=== PATIENT | female | born 1940 | race Caucasian/White ===

== ENCOUNTER 2024-01-26 21:09 | Inpatient (IN) | payer MEDICARE, OTHER, SELFPAY ==
[2024-01-26 16:57] VITALS: BP 97/65
[2024-01-26 17:52] VITALS: BMI 22.2
[2024-01-26] MEDS: ZOFRAN 4 MG IV (18:00)
[2024-01-26] MEDS: NSS 1000 IV ×2 (18:03→21:26)
--- NOTE | 2024-01-26 18:05 | ED.GENMED ---
History of Present Illness
<Donell Carvalho PA-C - Last Filed: 01/26/24 22:52>
General
Chief Complaint: Abdominal Symptoms
Source: patient
Exam Limitations: none
Time Seen by Provider: 01/26/24 17:25
Travel History
Have you had any contact with someone who has COVID-19?: No
Do you have any symptoms of coronavirus? Fever > 100 degrees, chills, cough, shortness of breath, sore throat, loss of taste or smell, muscle aches, or headache?: No
History of Present Illness
History of Present Illness:
83-year-old female presents complaining of 3 to 4 days worth of persistent vomiting and abdominal pain. She has not had a bowel movement. She is never been here before. Past surgical history includes splenectomy cholecystectomy and removal of
tail of pancreas. She has a history of hypertension and insulin-dependent diabetes. She has not been able to keep anything down. She feels very weak and dehydrated. No chest pain. No fever. No other complaints at this time
Phy Exam
<Donell Carvalho PA-C - Last Filed: 01/26/24 22:52>
Physical Exam
Physical Exam:
General: Well-appearing female no acute respiratory distress
HEENT: Normocephalic atraumatic mucosa dry
Heart: Regular rate and rhythm no murmurs
Lungs: Clear no wheeze abdomen: Soft but tender diffusely. No guarding or rebound tenderness nondistended
Extremities: No cyanosis or edema
Skin: Warm no rash
Course
<Donell Carvalho PA-C - Last Filed: 01/26/24 22:52>
Orders/Labs/Results
Orders:
Orders
01/26/24 Dinner
NPO
Allow oral meds: Yes
Allow clear liquids: No
NPO with Ice Chips: Yes
01/26/24 17:38
CT Abd/pel Without Iv Or Oral Urgent
Reason For Exam: abodminal pain, vomiting,
0.9% Sodium Chloride 1000 ml [Nss] 1,000 ml IV BOLUS
Ondansetron Injectable [Zofran] 4 mg IV NOW STA
01/26/24 17:39
Electrocardiogram (*1) Urgent
Reason for Study: Abdominal Pain
EKG- Treatment ONCE
01/26/24 18:07
Basic Metabolic Panel Urgent
Complete Blood Count/With Diff Urgent
Lipase Urgent
Manual Differential Urgent
Diphenhydramine [Benadryl] 50 mg IV NOW STA
Hydrocortisone Sod Succinate [Solu-Cortef] 200 mg IV NOW STA
01/26/24 20:06
0.9% Sodium Chloride 1000 ml [Nss] 1,000 ml IV BOLUS
Piperacillin/Tazo 3.375 Gram [Zosyn] 3.375 gram in 50 ml IV NOW
01/26/24 20:26
Lactic Acid Q4H
Comment: CANCEL 2nd LACTIC ACID IF 1st LACTIC ACID IS LESS THAN 2
01/26/24 20:39
Ondansetron Injectable [Zofran] 4 mg .ROUTE .STK-MED ONE
01/26/24 20:43
Admit/Transfer Patient As Directed
Co-Sign Provider:
Level of Care: Inpatient admission
Assign to:: Medical/Surgical
Physician / Group: Hospitalist
Diagnosis: Small bowel obstruction
Reason for Hospitalization: Small bowel obstruction
Expected length of stay greater than two midnights?: Yes
ELOS- Estimated Length of Stay in days: 2
I certify the patient meets the requirements for IP care: Yes
Code Status As Directed
Resuscitation Status: Limited DNR
Limited DNR: -No intubation
01/26/24 22:31
Acetaminophen [Tylenol] 650 mg PO Q4HPRN PRN
Bisacodyl [Dulcolax] 10 mg RECTAL [id number] PRN
HYDROmorphone [Dilaudid] 0.5 mg IV Q4HPRN PRN
Lactated Ringers [Lr] 1,000 ml IV 100 mls/hr
Ondansetron Injectable [Zofran] 4 mg IV Q6HPRN PRN
01/26/24 22:31
SURGICAL CONSULT Routine
Consulting Provider: Silas Herrera
Was physician already notified: Yes
Reason for consult: small bowel obstruction
Activity As Directed
Activity Level: With Assistance
Bedside Glucose Monitoring As Directed
Frequency: Q6H
Vital Signs As Directed
Frequency: Per unit guidelines
Pulse Ox/spot Check [RESP] Routine
Quantity: 1
DX Deep Vein Thrombosis Video Routine
01/27/24 00:00
Heparin 5,000 units SC Q8
Insulin Aspart Corrective Low [Novolog Flexpen-Low Resistance] See Protocol SC Q6
01/27/24 06:00
Basic Metabolic Panel IN AM
Complete Blood Count/No Diff IN AM
Abnormal Lab Results
01/26/24
18:07
Segmented Neutrophils 39 L %
(42-75)
Band Neutrophils 33 H %
(0-3)
Lymphocytes (Manual) 12 L %
(20-51)
Monocytes (Manual) 16 H %
(2-9)
Sodium 133 L mmol/L
(135-145)
Chloride 94 L mmol/L
(98-107)
Carbon Dioxide 20 L mmol/L
(22-30)
BUN 60 H mg/dl
(7-17)
Creatinine 2.0 H mg/dL
(0.6-1.0)
Glucose 112 H mg/dl
(70-99)
Lipase 21 L U/L
(23-300)
01/26/24 18:07
01/26/24 18:07
Vital Signs
Initial and Last Documented VS:
Initial Vital Signs
Temp Pulse Resp BP Pulse Ox
98.9 F 101 20 97/65 95
01/26/24 16:57 01/26/24 16:57 01/26/24 16:57 01/26/24 16:57 01/26/24 16:57
Last Documented Vital Signs
Temp Pulse Resp BP Pulse Ox
98.9 F 94 23 128/73 94
01/26/24 16:57 01/26/24 22:00 01/26/24 22:00 01/26/24 21:17 01/26/24 21:45
<Hui Snowden MD - Last Filed: 01/26/24 19:34>
Orders/Labs/Results
Orders:
Orders
01/26/24 Dinner
NPO
Allow oral meds: Yes
Allow clear liquids: No
NPO with Ice Chips: Yes
01/26/24 17:38
CT Abd/pel Without Iv Or Oral Urgent
Reason For Exam: abodminal pain, vomiting,
0.9% Sodium Chloride 1000 ml [Nss] 1,000 ml IV BOLUS
Ondansetron Injectable [Zofran] 4 mg IV NOW STA
01/26/24 17:39
Electrocardiogram (*1) Urgent
Reason for Study: Abdominal Pain
EKG- Treatment ONCE
01/26/24 18:07
Basic Metabolic Panel Urgent
Complete Blood Count/With Diff Urgent
Lipase Urgent
Manual Differential Urgent
Diphenhydramine [Benadryl] 50 mg IV NOW STA
Hydrocortisone Sod Succinate [Solu-Cortef] 200 mg IV NOW STA
01/26/24 20:06
0.9% Sodium Chloride 1000 ml [Nss] 1,000 ml IV BOLUS
Piperacillin/Tazo 3.375 Gram [Zosyn] 3.375 gram in 50 ml IV NOW
01/26/24 20:26
Lactic Acid Q4H
Comment: CANCEL 2nd LACTIC ACID IF 1st LACTIC ACID IS LESS THAN 2
01/26/24 20:39
Ondansetron Injectable [Zofran] 4 mg .ROUTE .STK-MED ONE
01/26/24 20:43
Admit/Transfer Patient As Directed
Co-Sign Provider:
Level of Care: Inpatient admission
Assign to:: Medical/Surgical
Physician / Group: Hospitalist
Diagnosis: Small bowel obstruction
Reason for Hospitalization: Small bowel obstruction
Expected length of stay greater than two midnights?: Yes
ELOS- Estimated Length of Stay in days: 2
I certify the patient meets the requirements for IP care: Yes
Code Status As Directed
Resuscitation Status: Limited DNR
Limited DNR: -No intubation
01/26/24 22:31
Acetaminophen [Tylenol] 650 mg PO Q4HPRN PRN
Bisacodyl [Dulcolax] 10 mg RECTAL [id number] PRN
HYDROmorphone [Dilaudid] 0.5 mg IV Q4HPRN PRN
Lactated Ringers [Lr] 1,000 ml IV 100 mls/hr
Ondansetron Injectable [Zofran] 4 mg IV Q6HPRN PRN
01/26/24 22:31
SURGICAL CONSULT Routine
Consulting Provider: Silas Herrera
Was physician already notified: Yes
Reason for consult: small bowel obstruction
Activity As Directed
Activity Level: With Assistance
Bedside Glucose Monitoring As Directed
Frequency: Q6H
Vital Signs As Directed
Frequency: Per unit guidelines
Pulse Ox/spot Check [RESP] Routine
Quantity: 1
DX Deep Vein Thrombosis Video Routine
01/27/24 00:00
Heparin 5,000 units SC Q8
Insulin Aspart Corrective Low [Novolog Flexpen-Low Resistance] See Protocol SC Q6
01/27/24 06:00
Basic Metabolic Panel IN AM
Complete Blood Count/No Diff IN AM
Abnormal Lab Results
01/26/24
18:07
Segmented Neutrophils 39 L %
(42-75)
Band Neutrophils 33 H %
(0-3)
Lymphocytes (Manual) 12 L %
(20-51)
Monocytes (Manual) 16 H %
(2-9)
Sodium 133 L mmol/L
(135-145)
Chloride 94 L mmol/L
(98-107)
Carbon Dioxide 20 L mmol/L
(22-30)
BUN 60 H mg/dl
(7-17)
Creatinine 2.0 H mg/dL
(0.6-1.0)
Glucose 112 H mg/dl
(70-99)
Lipase 21 L U/L
(23-300)
01/26/24 18:07
01/26/24 18:07
Vital Signs
Initial and Last Documented VS:
Initial Vital Signs
Temp Pulse Resp BP Pulse Ox
98.9 F 101 20 97/65 95
01/26/24 16:57 01/26/24 16:57 01/26/24 16:57 01/26/24 16:57 01/26/24 16:57
Last Documented Vital Signs
Temp Pulse Resp BP Pulse Ox
98.9 F 94 23 128/73 94
01/26/24 16:57 01/26/24 22:00 01/26/24 22:00 01/26/24 21:17 01/26/24 21:45
Mckinleylt;Donell Carvalho PA-C - Last Filed: 01/26/24 22:52>
MDM/Problems Addressed
Differential Diagnosis Includes:
Abdominal pain with vomiting. Question viral illness versus obstruction. Will check for electrolyte abnormality or kidney injury. Does appear dry on exam. Will treat with Zofran and fluids. Labs pending. Will order CT scan of abdomen. Patient
has a rash with IV contrast. Will pretreat.
<Donell Carvalho PA-C - Last Filed: 01/26/24 22:52>
*Critical Care Note
Total Time (30-74mins, 75-104mins- exclusive of procedures): Not Applicable
<Donell Carvalho PA-C - Last Filed: 01/26/24 22:52>
Update Note
Update Note:
Patient's kidney function preclude her from getting IV contrast CT. She does have acute kidney injury with creatinine of 2.0. Suspect prerenal. CT was performed without contrast which demonstrates small bowel obstruction versus ileus. She had
vomited several times here. NG tube was placed. Admitted to medicine and general surgery made aware
ED Attending Note
<Donell Carvalho PA-C - Last Filed: 01/26/24 22:52>
-
Portions of this chart may have been created with voice recognition software.� Occasional wrong word or��sound alike� substitutions may have occurred due to the inherent limitations of voice recognition software.
<Hui Snowden MD - Last Filed: 01/26/24 19:34>
ED Attending Note
Patient seen and examined by attending physician: Yes
I performed the substantive portion of visit, reviewed & personally made and approve the management plan that is documented in note by myself or JEANMARIE.: Yes
ED Attending Note:
83-year-old female with 4-day history of nonbloody intractable vomiting and generalized lower abdominal discomfort. Patient does have a prior surgical history. On exam, nonspecific lower abdominal tenderness to palpation, no rebound or guarding.
Hyperactive bowel sounds. Mucous membranes extremely dry, patient overall tired appearing. Strongly suspect bowel obstruction, and CAT scan at this time, will continue to hydrate, observe closely, and admit.
Discharge Plan
Departure
Patient Disposition: Admit
Presentation/result/management discussed w/ accepting MD/DO: Hospitalist
Discharge Problem:
Small bowel obstruction
Interventions
Interventions:
*Risk Screen - Suicide Last Done: 01/26/24 17:01
*General Assessment Last Done: 01/26/24 17:01
*Neglect/Abuse Screening Last Done: 01/26/24 17:01
ED- Fall Risk Assessment Last Done: 01/26/24 21:30
*ED COVID-19 Vaccine History Last Done: 01/26/24 18:22
*Nursing Disposition Last Done: 01/26/24 22:23
GT-Mzyneo-Utybmrlipb Assessment Last Done: 01/26/24 21:29
Discharge Date and Time
Discharge Date/Time: 01/26/24 22:29
[2024-01-26 18:16] LABS: Hemoglobin 15.3 g/dL (12.0-16.0); Mean Corpuscular Hgb 30.6 pg (27.0-31.0); Mean Platelet Volume 9.7 fL (7.4-10.4); Platelet Count 362 10^3/uL (130-400); Red Cell Dist. Width 13.2 % (11.5-14.5); White Blood Cell Count 7.2 10^3/uL (4.8-10.8)
[2024-01-26 18:57] LABS: Absolute Neutrophils -Man Diff 5.1 10^3/uL (1.4-6.5); Band Neutrophils 33 % (0-3); Lymphocytes 12 % (20-51); Monocytes 16 % (2-9); Normal RBC Morphology No; Platelets Checked Yes; Segmented Neutrophils 39 % (42-75)
[2024-01-26 18:58] LABS: Acanthocytes 3+; Total Cells Counted 100
[2024-01-26 19:05] LABS: Blood Urea Nitrogen 60 mg/dl (7-17); Carbon Dioxide 20 mmol/L (22-30); Chloride 94 mmol/L (98-107); Estimated Creatinine Clearance 19 ml/min; Glucose 112 mg/dl (70-99); Sodium 133 mmol/L (135-145); eGFR 24.48
[2024-01-26 19:16] LABS: Lipase 21 U/L (23-300)
[2024-01-26] MEDS: NSS IV (20:10)
[2024-01-26] MEDS: ZOSYN 50 IV (20:10)
--- NOTE | 2024-01-26 20:25 | HPS.HSE ---
Family Physician
-
Family Physician: Coleen Danielle
Chief Complaint
-
Vomiting and abdominal pain
History of Present Illness
This is an 83-year-old female with past medical history of hypertension hypothyroidism insulin-dependent diabetes, history of remote cholecystectomy, splenectomy with distal pancreatectomy and recently had bilateral mastectomy a year ago
presents to the emergency department with abdominal pain and vomiting for the last 3 days.
She reports that she had otherwise been in usual state of health up until 3 days ago when she started having diffuse abdominal pain and bloating. She reported that she started vomiting a few hours later. The vomiting has been continuous and she
reported she has had bilious emesis. Last bowel movement was about 3 days ago. She is unable to keep any p.o. down. She denied having any fevers or chills. She denies any flank pain. She denies any dysuria or hematuria. She denies any melena
or hematochezia. She has not had any bloody emesis. Despite vomiting she has not had any cough, wheezing or shortness of breath.
Last intra-abdominal surgery was around 15 years ago or more. She denies any recent intra-abdominal procedures. She denies any history of kidney stones. Has been no recent changes in the medications.
On arrival in the emergency department the patient was afebrile, BP of 97/60, normal respirations with a normal oxygen saturation. ECG showed normal sinus rhythm at a rate of [address] or T wave changes. White count was 7.2 but she
had a 3% bandemia. Hemoglobin was 15 with a platelet count of 362. Chemistries notable for a sodium of 133, potassium is pending, BUN is 60 and a creatinine of 2.0 with a glucose of 112. Lipase is normal. She had a CT of the abdomen and pelvis
which showed small bowel obstruction versus ileus.
Medical History
Past Medical History
Past Medical History: Reports Cancer (Breast Ca), HTN, Hypothyroidism and IDDM
Past Surgical History: Reports Cholecystectomy
Additional Past Surgical History:
Distal Pancreatectomy
Splenectomy
Social History
Tobacco: Non-smoker
Drug: None
Personal: Single
Living: Alone
Employment: Retired
Family History
Family History: Not pertinent
Allergies / Home Medications
Allergies reflects when Allergies were last updated in [employer].
Home Medications with original date entered in [employer]
Allergy/Medication List:
Allergies
Allergy/AdvReac Type Severity Reaction Status Date / Time
codeine Allergy Unknown Verified 01/26/24 17:06
Iodinated Contrast Media Allergy Rash Verified 01/26/24 17:54
Aspirin 81 mg po daily
Amlodipine 5 mg po daily
Carvedilol 6.25mg po bid
Levemir 6 units sq daily
Levothyroxine 75 mcg po -Sat
Levothyroxine 50 mcg po saturday
Losartan 100mg po daily
Omeprazole 20mg po dialy
Pravastatin 80mg po daily
B12 5000 mcg po daily
Vit D3 400 U po daily
Review of Systems
-
History Source: Patient and Family
Constitutional: Reports No Symptoms
EENT: Reports No Symptoms
Respiratory: Reports No Symptoms
Cardiac: Reports No Symptoms
Abdomen/GI: Reports Abdominal Pain, Vomiting and Constipated
: Reports No Symptoms
Musculoskeletal: Reports No Symptoms
Skin: Reports No Symptoms
Neurological: Reports No Symptoms
Endocrine: Reports No Symptoms
Hematologic/Lymphatic: Reports No Symptoms
Psych: Reports No Symptoms
Physical Exam
Vital Signs
Vital Signs
Temp Pulse Resp BP Pulse Ox
98.9 F 101 20 97/65 95
01/26/24 16:57 01/26/24 16:57 01/26/24 16:57 01/26/24 16:57 01/26/24 16:57
Physical Exam
General: Well Developed, Well Nourished and Appears in Distress
HEENT: NormoCephalic, Anicteric, Atraumatic, PERRLA and Fortine Conjunctivae
Respiratory: Clear
Cardiac: S1/S2 and Regular Rhythm
Breast: Deferred by me
GI: Soft, Non Distended, Tender and Other (decreased bowel sounds)
Rectal: Deferred by Provider
Genito-urinary: Deferred by me
Musculoskeletal: No Clubbing, No Cyanosis and No Edema
Skin: Warm
Neuro: AO x 3
Hematologic/Lymphatic: No Lymphadenopathy
Psych: Calm
Laboratory Results
-
01/26/24 18:07
01/26/24 18:07
Laboratory Results
Total Bilirubin Cancelled 01/26/24 18:07
AST Cancelled 01/26/24 18:07
ALT Cancelled 01/26/24 18:07
Alkaline Phosphatase Cancelled 01/26/24 18:07
Lipase 21 U/L (23-300) L 01/26/24 18:07
Data Reviewed
-
CT Scan: Report Reviewed by me
Medical Tests (Nuc Med, Echo, EKG etc): Image Personally Visualized and interpreted
Lab Data: Labs Reviewed by me
Old Records: Reviewed
Impression/Plan
-
IMPRESSION:
PLAN:
1. Abdominal pain - Small bowel obstruction versus ileus. H/O intraabdominal surgeries. No h/o IBD. No masses. Already vomited for the last 3 days with bilious emesis. Currently dehydrated with soft bp and SITA. Surgery aware and supportive
care indicated for now.
- admit to med/surg
- NG tube placement to low intermittent suction
- pain control with tylenol prn and diluadid
- antiemetics
- npo except critical meds
- IV fluids with LR at 100 ml/hr
- surgery consult
2. SITA - BUN 60, Cr 2.0. C/W prerenal azotemia given history. Na 133.
- IV fluids at 100 ml/hr
- monitor i/o
-holding losartan for now
3. HTN - Patient on amlodipine 5, carvedilol 6.25 bid and losartan. BP soft at 97/65 currently
- hold amlodipine and losartan
- continue beta blockade bid with hold parameters (use IV metoprolol 2.5 q6 for now)
4. GERD -
- PPI IV daily
5. Hypothyroid
- holding levothyroxine
6. DM II
- low sensitive sliding scale q 6
7. Bandemia - No prior CBC for comparison. No obvious source of infection. No pulmonary symptoms to suggest aspiration.
- repeat cbc for now and monitor for onset of an infectious process
DVT PPX - heparin sq q 8
Code Status - limited resucitation via CPR, no intubation
[2024-01-26 20:56] LABS: Lactic Acid 1.3 mmol/L (0.7-2.0)
[2024-01-26 21:17] VITALS: BP 128/73
[2024-01-26 22:56] LABS: Glucose - Point of Care 117 mg/dl (70-99)
[2024-01-26 23:22] VITALS: BP 116/61; BMI 21.2
[2024-01-26] MEDS: LR 1000 IV (23:27)
[2024-01-27] MEDS: HEPARIN 5000 UNITS SC ×4 (01:15→23:32)
--- NOTE | 2024-01-27 03:15 | PTCARENOTE ---
Addendum entered by Mirella Galarza RN 01/27/24 03:19:
Pt arrived at 19:55 to the floor
Original Note:
Pt arrived 2S via stretcher from the ED. Pt. AAOX3, VSS, complains of no pain. NG tube 14 German to Lt nare at low intermitted suction. Head to toe assessment complete. Grandaughter at the beside. Bed in lowest position and locked. Call heard within
reach.
--- NOTE | 2024-01-27 03:21 | PTCARENOTE ---
Pt has had multiple episodes of inc liquid stools. Pt states this is not her baseline. see BM intervention documentation.
[2024-01-27 05:45] LABS: Mean Corp Hgb Conc. 33.3 g/dL (33.0-37.0); Mean Corpuscular Hgb 30.4 pg (27.0-31.0); Mean Corpuscular Volume 91.1 fL (81.0-99.0); Platelet Count 317 10^3/uL (130-400); Red Blood Cell Count 3.95 10^6/uL (4.20-5.40); Red Cell Dist. Width 13.2 % (11.5-14.5); White Blood Cell Count 9.3 10^3/uL (4.8-10.8)
[2024-01-27 05:50] LABS: Glucose - Point of Care 116 mg/dl (70-99)
[2024-01-27 06:00] VITALS: BMI 21.2
[2024-01-27 06:18] LABS: Blood Urea Nitrogen 55 mg/dl (7-17); Carbon Dioxide 21 mmol/L (22-30); Chloride 102 mmol/L (98-107); Estimated Creatinine Clearance 22 ml/min; Glucose 106 mg/dl (70-99); Potassium 4.1 mmol/L (3.5-5.1); Sodium 137 mmol/L (135-145); eGFR 29.76
[2024-01-27 07:35] VITALS: BP 125/63
[2024-01-27] MEDS: PROTONIX IV 40 MG IV (08:53)
[2024-01-27] MEDS: NSS (PRESERVATIVE FREE) 10 ML IV (08:53)
[2024-01-27] MEDS: LR 1000 IV ×2 (08:55→20:43)
--- NOTE | 2024-01-27 09:35 | CON.GS ---
Addendum entered and electronically signed by Clyde Razo MD 01/27/24 15:38:
I saw and examined the patient independently.
The Bulk Mail Technician's note was reviewed and I agree with the note, assessment and plan except where noted below.
Comment: This is an 83-year-old female who presents with nausea vomiting and bilious emesis for 3 to 4 days with accompanied abdominal pain for roughly a week. Per hospital notes she has a history of a distal pancreatectomy and splenectomy as well
as a cholecystectomy. 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 A CT scan was obtained which demonstrated the distal small bowel obstruction, first
that she has ever had. An NG tube was placed with bilious output and immediate relief. The patient states that she is passing flatus and has had a few small bowel movements. Her abdominal exam is reassuring.
On review of her CT scan she does have some small fat-containing midline hernias as well as hyperdense foreign objects along the fascia concerning for retained clips or tacks that is likely the source of her sinus tract. There is no involvement of
the bowel and I do believe that it is unrelated to her underlying small bowel obstruction.
Will continue nonoperative management of small bowel obstruction.
N.p.o., IV fluids, NG tube to low intermittent wall suction. Will start a PPI as there is some blood in the NG.
X-ray obtained today which demonstrates some continued dilated loops of bowel but overall fairly decompressed and no concerning findings at this time.
General surgery will continue to follow.
Original Note:
Consultation
-
Requesting Provider: Celeste James
Performing Provider: Abiola Razo
Reason for Consultation: sbo
Medical History
-
Chief Complaint: nausea and vomiting
History of Present Illness:
83 yo female who presented with nausea and vomiting of bilious emesis for 3-4 days with abdominal cramping/bloating and pain for roughly for a week. History limited as patient did not wish to disclose all her medical/surgical history at this time,
but per hospitalist notes she had splenectomy, distal pancreatectomy and cholecystectomy in the past. 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 There is a
dressing in place which she requested not be removed. NGT was placed with brown blood tinged drainage noted currently. She reports abdominal discomfort and bloating much improved overnight and that now she is passing diarrhea. Prior to this, she was
without any passage of BM's or flatus for 3 days.
Past Medical History
Past Medical History: Cancer (Breast), HTN, Hypothyroidism and NIDDM
Past Surgical History: Cholecystectomy and Other (BL mastectomy, splenectomy with distal pancreatectomy)
Social History
Tobacco: Non-Smoker
Alcohol: None
Living: Alone
Employment: Retired
Family History
Family History: Reviewed & Not Pertinent
Allergies / Home Medications
Allergy/AdvReac Type Severity Reaction Status Date / Time
codeine Allergy Unknown Verified 01/26/24 17:06
Iodinated Contrast Media Allergy Rash Verified 01/26/24 17:54
�Medication �Instructions �Recorded �Confirmed �Type
Levemir FlexPen 4 pen needle SC DAILY Diabetes 01/27/24 01/27/24 History
amlodipine 5 mg tablet 5 mg PO DAILY Blood Pressure 01/27/24 01/27/24 History
aspirin 81 mg capsule 81 mg PO DAILY Blood Clot 01/27/24 01/27/24 History
Prevention/Tx
carvedilol 6.25 mg tablet 6.25 mg PO BID Blood Pressure 01/27/24 01/27/24 History
levothyroxine 50 mcg tablet 50 mcg PO 1XD Thyroid 01/27/24 01/27/24 History
levothyroxine 75 mcg tablet 75 mcg PO 6XD Thyroid 01/27/24 01/27/24 History
losartan 100 mg tablet 100 mg PO DAILY Blood Pressure 01/27/24 01/27/24 History
omeprazole 20 mg capsule,delayed 20 mg PO DAILY Gastrointestinal 01/27/24 01/27/24 History
release Issue
pravastatin 80 mg tablet 80 mg PO DAILY High Cholesterol 01/27/24 01/27/24 History
Review of Systems
-
History Source: Patient
All other systems: Negative unless noted
A 10 point review of systems was completed, and was negative except as per HPI.
Physical Exam
Vital Signs
Temp Pulse Resp BP Pulse Ox
97.6 F 85 17 125/63 95
01/27/24 07:35 01/27/24 07:35 01/27/24 07:35 01/27/24 07:35 01/27/24 07:35
01/26/24 01/27/24 01/28/24
06:59 06:59 06:59
Actual Weight 56.064 kg
Body Mass Index (BMI) 21.2
Lab Results
01/27/24 05:02
01/27/24 05:02
WBC 9.3 10^3/uL (4.8-10.8) 01/27/24 05:02
Hgb 12.0 g/dL (12.0-16.0) D 01/27/24 05:02
Hct 36.0 % (37.0-47.0) L 01/27/24 05:02
Plt Count 317 10^3/uL (130-400) 01/27/24 05:02
Abs Immat Gran (auto) Not Reportable 01/26/24 18:07
Neutrophils % Not Reportable 01/26/24 18:07
Physical Exam
General: Well Developed and No Apparent Distress
HEENT: Moist Mucous Membranes
Respiratory: Non Labored Respirations
GI: Soft, Non Tender, Distended (minimal) and Other (NGT with brown, blood tinged outputs)
Skin: Warm
Neuro: Awake, Alert and AO x 3
Psych: Calm
Data Reviewed
-
CT Scan: Image Personally Visualized and interpreted, Report Reviewed by me, Discussed with Physician and Discussed with Patient
Labs: Labs Reviewed by me, Discussed with Physician and Discussed with Patient
Assessment / Plan
-
83 yo female with h/o IDDM, cholecystectomy, splenectomy, partial pancreatectomy, and bilateral mastectomies for breast ca who presents with n/v/abdominal pain for the past [address] imaging with concern for distal SBO vs ileus. NGT placed
overnight with brown/blood tinged drainage present. Now passing watery stools although no real flatus. Symptoms much improved from presentation.
AFVSS. No leukocytosis.
--Keep NPO with NGT in place
--Check Abd xr this am, tentative NGT removal pending findings
--No plans for emergent operative intervention, will follow with bowel rest, decompression and supportive measures at this time
--- NOTE | 2024-01-27 11:49 | CM ---
CM following re: discharge planning.
Reviewed pt's chart, met with pt.
Pt is an 83 year old female, admitted with primary dx of Abdominal pain - Small bowel obstruction versus ileus.
Pt reports she lives alone in a townhouse, 6+7 steps to enter, has 2 supportive daughters and 4 stepchildren. Pt reports her 22 daughters and one stepdaughter live nearby, very supportive and help as needed. Pt described herself as independent in
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 No VN or SNF history.
PCP: Coleen Danielle
Pharmacy: [facility].
D/C plan: pt stated she does not anticipate any VN needs at discharge. Daughter to transport at discharge.
CM will follow with discharge plan updates as hospitalization progresses.
--- NOTE | 2024-01-27 12:41 | W.PN.HOSP.TC ---
Today's Communication/Plan
-
Await general surgery input
Assessment / Plan
Assessment / Plan
Gen-AAOx3, NAD
HEENT-NC, AT, anicteric, clear oral mm, NG tube in place
Neck-supple
CV-reg, no M, +S1/S2
Lungs-clear B/L
Abd-soft, NT, ND
Ext-no edema
Musculoskeletal-no cyanosis, clubbing
Skin-warm and dry
Neuro-grossly non-focal
Psych-calm, cooperative
Small bowel obstruction -clinically improving, having loose stools. Follow-up abdominal x-ray today. Currently n.p.o., continue IV fluids. NG tube per surgical service. Denies history of bowel obstruction.
SITA -likely due to volume depletion due to anorexia from bowel obstruction. GI losses with vomiting. Creatinine improving with IV fluids. Recheck labs tomorrow.
Hypovolemic hyponatremia -improving with IV fluids.
Hypothyroidism -resume Synthroid when able.
Essential hypertension -stable.
DM2 without hyperglycemia -glucose 106 this morning. She takes Levemir FlexPen 6 units daily. Currently on NovoLog low resistance scale.
Hyperlipidemia -on Pravachol at home.
Limited DNR
Anticipated Discharge: 24 - 48 hours
Subjective/Interval History
-
Date of Service: January 27, 2024
Patient seen and examined. Feeling better. Denies pain currently.
Objective Data
-
Labs:
Laboratory Results
01/27/24
05:02
WBC 9.3
Hgb 12.0 D
Hct 36.0 L
Plt Count 317
Sodium 137
Potassium 4.1
Chloride 102
Carbon Dioxide 21 L
BUN 55 H
Creatinine 1.7 H
Glucose 106 H
Calcium 9.0
Vital Signs:
Vital Signs
Temp Pulse Resp BP Pulse Ox
97.6 F 85 17 125/63 95
01/27/24 07:35 01/27/24 07:35 01/27/24 07:35 01/27/24 07:35 01/27/24 08:51
I&O
01/26/24 01/27/24 01/28/24
06:59 06:59 06:59
Output Total 350 / 350
Balance -350 / -350
Review of Systems
-
History Source: Patient
All other systems: Reviewed and negative
[2024-01-27 13:06] LABS: Glucose - Point of Care 90 mg/dl (70-99)
[2024-01-27 15:41] VITALS: BP 157/70
[2024-01-27 17:21] LABS: Glucose - Point of Care 71 mg/dl (70-99)
[2024-01-27] MEDS: CHLORASEPTIC/SORE THROAT SPRAY 2 SPRAY PO (20:53)
[2024-01-27 23:40] VITALS: BP 154/92
[2024-01-27 23:40] LABS: Glucose - Point of Care 65 mg/dl (70-99)
[2024-01-27] MEDS: DEXTROSE 50% SYRINGE 12.5 GRAMS IV (23:56)
[2024-01-28 00:25] LABS: Glucose - Point of Care 119 mg/dl (70-99)
[2024-01-28 05:37] LABS: Glucose - Point of Care 72 mg/dl (70-99)
[2024-01-28 07:06] VITALS: BP 163/85
[2024-01-28 07:15] LABS: Glucose - Point of Care 68 mg/dl (70-99)
[2024-01-28] MEDS: DEXTROSE 50% SYRINGE 12.5 GRAMS IV (07:38)
[2024-01-28] MEDS: LR 1000 IV (07:42)
[2024-01-28] MEDS: HEPARIN 5000 UNITS SC ×3 (07:44→23:42)
[2024-01-28] MEDS: NSS (PRESERVATIVE FREE) 10 ML IV (07:44)
[2024-01-28] MEDS: PROTONIX IV 40 MG IV (07:44)
--- NOTE | 2024-01-28 08:24 | W.PN.GS2 ---
Today's Communication / Plan
-
-- DC NGT
-- Clears
-- OOB/ambulate, minimize narcotics, correct lytes
Assessment / Plan
-
Patient is an 83 yo F p/w SBO likely secondary to adhesions
Clinical improvement with minimal, gastric outputs and passage of flatus and stool. Plan for NGT removal and trial of clears.
-- DC NGT
-- Clears
-- OOB/ambulate, minimize narcotics, correct lytes
Subjective Data
-
Date of Service: January 28, 2024
Imaging complaints. Abdominal pain and distention has improved since admission, and patient states that she is back to her baseline. Passing minimal flatus, small bowel movement this AM. No fevers or chills. No nausea or vomiting.
Objective Data
-
Intake and Output
01/27/24 01/28/24 01/29/24
06:59 06:59 06:59
Intake Total 1200 / 1200
Output Total 350 / 350 250 / 250
Balance -350 / -350 950 / 950
Intake:
IV fluids (Total) 1200 / 1200
Output:
Gastrointestinal tube output ( 350 / 350 250 / 250
Total)
[place] Sump 350 / 350 250 / 250
Other:
Number of approximated MODERATE 1 1
amounts of urine
Number of approximated LARGE 1
amounts of urine
Number of unmeasured liquid
stools
Rectum 3 1
Vital Signs
Temp Pulse Resp BP Pulse Ox
97.4 F 79 16 154/92 95
01/27/24 23:40 01/27/24 23:40 01/27/24 23:40 01/27/24 23:40 01/27/24 23:40
Lab Results
01/27/24 05:02
Calcium 9.0 mg/dl (8.4-10.2) 01/27/24 05:02
Total Bilirubin Cancelled 01/26/24 18:07
AST Cancelled 01/26/24 18:07
ALT Cancelled 01/26/24 18:07
Alkaline Phosphatase Cancelled 01/26/24 18:07
Total Protein Cancelled 01/26/24 18:07
Albumin Cancelled 01/26/24 18:07
Physical Exam
-
Gen: NAD
HEENT: gastric outputs
Abd: soft, NT, minimal distension, non-peritoneal, prior incisions well healed, abd dressing c/d/i
[2024-01-28 08:28] LABS: Glucose - Point of Care 122 mg/dl (70-99)
[2024-01-28 10:10] LABS: ALT (SGPT) 16 U/L (0-35); AST (SGOT) 25 U/L (14-36); Albumin 3.1 g/dl (3.5-5.0); Alkaline Phosphatase 100 U/L (38-126); Blood Urea Nitrogen 25 mg/dl (7-17); Calcium 9.6 mg/dl (8.4-10.2); Carbon Dioxide 27 mmol/L (22-30); Chloride 101 mmol/L (98-107); Estimated Creatinine Clearance 54 ml/min; Glucose 94 mg/dl (70-99); Potassium 3.3 mmol/L (3.5-5.1); Sodium 137 mmol/L (135-145); Total Bilirubin 0.5 mg/dl (0.2-1.3); Total Protein 5.6 g/dl (6.3-8.2); eGFR > 60.00
[2024-01-28 10:45] LABS: Glucose - Point of Care 88 mg/dl (70-99)
--- NOTE | 2024-01-28 11:03 | CM ---
Addendum entered by Naveed Richards 01/28/24 11:06:
IMM reviewed, placed on chart, pt has a copy.
Original Note:
CM following re: discharge planning.
Reviewed pt's chart, met with pt. Per surgery, discharge NGT, advance diet, out of bed.
Pt lives alone in a townhouse, 6+7 steps to enter, has 2 supportive daughters and 4 stepchildren. Pt reports her 2 daughters and one stepdaughter live nearby, very supportive and help as needed. Pt described herself as independent in all areas [place],
uses a cane when goes shopping.
D/C plan: pt stated she does not anticipate any VN needs at discharge. Daughter to transport at discharge.
CM will follow with discharge plan updates as hospitalization progresses.
--- NOTE | 2024-01-28 11:26 | W.PN.HOSP.TC ---
Today's Communication/Plan
-
IV KCl
Check magnesium
Assessment / Plan
Assessment / Plan
Gen-AAOx3, NAD
HEENT-NC, AT, anicteric, clear oral mm, NG tube in place
Neck-supple
CV-reg, no M, +S1/S2
Lungs-clear B/L
Abd-soft, NT, ND
Ext-no edema
Musculoskeletal-no cyanosis, clubbing
Skin-warm and dry
Neuro-grossly non-focal
Psych-calm, cooperative
Small bowel obstruction -clinically improving, having loose stools. Denies history of bowel obstruction. NG tube removed. Tolerating clear liquids.
SITA -likely due to volume depletion due to anorexia from bowel obstruction. GI losses with vomiting. SITA resolved.
Hypokalemia -replete IV. Check magnesium.
Hypovolemic hyponatremia -resolved.
Hypothyroidism -resume Synthroid when able.
Essential hypertension -stable.
DM2 without hyperglycemia -glucose 94 this morning. She takes Levemir FlexPen 6 units daily. Currently on NovoLog low resistance scale.
Hyperlipidemia -on Pravachol at home.
Limited DNR
Anticipated Discharge: Within 24 hours
Subjective/Interval History
-
Date of Service: January 28, 2024
Patient seen and examined. Feeling better. Denies abdominal pain. No complaints.
Objective Data
-
Labs:
Laboratory Results
01/28/24
09:09
Sodium 137
Potassium 3.3 L
Chloride 101
Carbon Dioxide 27
BUN 25 H
Creatinine 0.7
Glucose 94
Calcium 9.6
Total Bilirubin 0.5
AST 25
ALT 16
Alkaline Phosphatase 100
Vital Signs:
Vital Signs
Temp Pulse Resp BP Pulse Ox
98.5 F 77 16 163/85 94
01/28/24 07:06 01/28/24 07:06 01/28/24 07:06 01/28/24 07:06 01/28/24 08:00
I&O
01/27/24 01/28/24 01/29/24
06:59 06:59 06:59
Intake Total 1200 / 1200
Output Total 350 / 350 250 / 250
Balance -350 / -350 950 / 950
Review of Systems
-
History Source: Patient
All other systems: Reviewed and negative
[2024-01-28] MEDS: KCL 270 MEQ IV (11:29)
[2024-01-28 11:48] LABS: Magnesium 1.6 mg/dl (1.6-2.3)
[2024-01-28 12:22] LABS: Glucose - Point of Care 144 mg/dl (70-99)
--- NOTE | 2024-01-28 14:21 | PN.CDI ---
CDI
- -
CDI:
Physician Documentation Request
Admit Date: 01/26/24 21:09
Dear Doctor Nohemy,
Patient admitted with small bowel obstruction.
01/27 PN, 'Small bowel obstruction -clinically improving, having loose stools.'
01/27 Gen surgery, 'SBO likely secondary to adhesions....Passing minimal flatus, small bowel movement this AM.
01/26 Gen surgery, 'Will continue nonoperative management of small bowel obstruction.'
Please provide in your note the likely type of small bowel obstruction:
Partial small bowel obstruction
Complete small bowel obstruction
Other
Use of terms such as suspected, likely, concern for, or probable (associated with a specific diagnosis that is being evaluated, monitored, or treated as if it exists) are acceptable and can be coded in the inpatient setting, when documented at the
time of discharge.
Thank you,
Daphne SHIRLEY,RN,CCDS
CDI Specialist
Available via [place] text
Please use your independent medical judgment in providing your response.
[2024-01-28 15:00] VITALS: BP 91/73
[2024-01-28 17:20] LABS: Glucose - Point of Care 93 mg/dl (70-99)
[2024-01-28 21:23] LABS: Glucose - Point of Care 122 mg/dl (70-99)
[2024-01-28 22:10] VITALS: BP 173/98
--- NOTE | 2024-01-29 04:16 | DOWNTIME ---
There was a [employer] Client Psych Tech Downtime on 01/28/2024 from 0100 to 01/29/2024 at 0300. Downtime documentation of patient's care, including medication administrations, has been reconciled in the electronic record per guidelines. Refer to the
patient's paper chart under the miscellaneous tab to see printed paper medication records and downtime forms.
[2024-01-29 07:05] LABS: Glucose - Point of Care 99 mg/dl (70-99)
[2024-01-29] MEDS: HEPARIN 5000 UNITS SC ×2 (07:36→15:21)
[2024-01-29] MEDS: PROTONIX IV 40 MG IV (07:36)
[2024-01-29] MEDS: NSS (PRESERVATIVE FREE) 10 ML IV (07:36)
[2024-01-29 07:37] VITALS: BP 187/99
[2024-01-29 08:28] LABS: ALT (SGPT) 18 U/L (0-35); AST (SGOT) 34 U/L (14-36); Albumin 3.4 g/dl (3.5-5.0); Alkaline Phosphatase 112 U/L (38-126); Blood Urea Nitrogen 13 mg/dl (7-17); Calcium 10.1 mg/dl (8.4-10.2); Carbon Dioxide 27 mmol/L (22-30); Chloride 99 mmol/L (98-107); Estimated Creatinine Clearance 62 ml/min; Glucose 92 mg/dl (70-99); Potassium 3.8 mmol/L (3.5-5.1); Sodium 135 mmol/L (135-145); Total Bilirubin 0.6 mg/dl (0.2-1.3); Total Protein 6.2 g/dl (6.3-8.2); eGFR > 60.00
--- NOTE | 2024-01-29 09:27 | PN.CDI ---
CDI
- -
CDI:
Physician Documentation Request
Admit Date: 01/26/24 21:09
Dear Doctor Stephanie,
Patient admitted with small bowel obstruction.
01/27 PN, 'Small bowel obstruction -clinically improving, having loose stools.'
01/27 Gen surgery, 'SBO likely secondary to adhesions....Passing minimal flatus, small bowel movement this AM.
01/26 Gen surgery, 'Will continue nonoperative management of small bowel obstruction.'
Please provide in your note the likely type of small bowel obstruction:
Partial small bowel obstruction
Complete small bowel obstruction
Other
Use of terms such as suspected, likely, concern for, or probable (associated with a specific diagnosis that is being evaluated, monitored, or treated as if it exists) are acceptable and can be coded in the inpatient setting, when documented at the
time of discharge.
Thank you,
Daphne SHIRLEY,RN,CCDS
CDI Specialist
Available via [place] text
Please use your independent medical judgment in providing your response.
[2024-01-29 10:28] VITALS: BP 157/89
[2024-01-29 11:37] LABS: Glucose - Point of Care 98 mg/dl (70-99)
--- NOTE | 2024-01-29 12:41 | W.PN.HOSP.TC ---
Today's Communication/Plan
-
Advance diet
Discharge
Assessment / Plan
Assessment / Plan
Gen-AAOx3, NAD
HEENT-NC, AT, anicteric, clear oral mm, NG tube in place
Neck-supple
CV-reg, no M, +S1/S2
Lungs-clear B/L
Abd-soft, NT, ND
Ext-no edema
Musculoskeletal-no cyanosis, clubbing
Skin-warm and dry
Neuro-grossly non-focal
Psych-calm, cooperative
Small bowel obstruction -clinically improving, having loose stools. Denies history of bowel obstruction. NG tube removed. Tolerating clear liquids. Advance diet to low residue, discussed with surgery.
SITA -likely due to volume depletion due to anorexia from bowel obstruction. GI losses with vomiting. SITA resolved.
Hypokalemia -resolved. Magnesium normal.
Hypovolemic hyponatremia -resolved.
Hypothyroidism -resume Synthroid.
Essential hypertension -stable.
DM2 without hyperglycemia -glucose 92 this morning. She takes Levemir FlexPen 6 units daily. Currently on NovoLog low resistance scale.
Hyperlipidemia -on Pravachol at home.
Limited DNR
Dispo -can discharge home today if she tolerates low residue diet. Continue low residue for the next week and then resume usual diet. Discussed with surgery.
31 minutes spent in discharge process.
Anticipated Discharge: Today
Subjective/Interval History
-
Date of Service: January 29, 2024
Patient seen and examined. Eager to eat. No complaints.
Objective Data
-
Labs:
Laboratory Results
01/29/24
07:15
Sodium 135
Potassium 3.8
Chloride 99
Carbon Dioxide 27
BUN 13
Creatinine 0.6
Glucose 92
Calcium 10.1
Total Bilirubin 0.6
AST 34
ALT 18
Alkaline Phosphatase 112
Vital Signs:
Vital Signs
Temp Pulse Resp BP Pulse Ox
99.1 F 73 14 157/89 98
01/29/24 07:37 01/29/24 10:28 01/29/24 07:37 01/29/24 10:28 01/29/24 08:00
I&O
01/28/24 01/29/24 01/30/24
06:59 06:59 06:59
Intake Total 1200 / 1200 910 / 910
Output Total 250 / 250
Balance 950 / 950 910 / 910
Review of Systems
-
History Source: Patient
All other systems: Reviewed and negative
--- NOTE | 2024-01-29 12:45 | W.DS.TRANS ---
DC Summary - Sanitation Officer
-
Discharge Instructions:
Discharge Diagnosis/Procedures Small bowel obstruction
Diet Low Residue,Other diet
Additional Diets Low residue diet for the next week then resume
usual diet
Activity As tolerated
Driving Restrictions As prior to admission
Bathing Restrictions None
Instructions:
Stand-Alone Forms:
Changes to Home Medications: No
Discharge Medications:
DC Medications w/original date entered in [facility]
Levemir FlexPen 4 pen needle SC DAILY Diabetes 01/27/24
amlodipine 5 mg tablet 5 mg PO DAILY Blood Pressure 01/27/24
aspirin 81 mg capsule 81 mg PO DAILY Blood Clot Prevention/Tx 01/27/24
carvedilol 6.25 mg tablet 6.25 mg PO BID Blood Pressure 01/27/24
levothyroxine 50 mcg tablet 50 mcg PO 1XD Thyroid 01/27/24
levothyroxine 75 mcg tablet 75 mcg PO 6XD Thyroid 01/27/24
losartan 100 mg tablet 100 mg PO DAILY Blood Pressure 01/27/24
omeprazole 20 mg capsule,delayed release 20 mg PO DAILY Gastrointestinal Issue 01/27/24
pravastatin 80 mg tablet 80 mg PO DAILY High Cholesterol 01/27/24
Home Medication Changes
Pending Results: No
--- NOTE | 2024-01-29 13:05 | W.PN.GS2 ---
Today's Communication / Plan
-
LRD--> DC
Assessment / Plan
-
Patient is an 83 yo F p/w SBO likely secondary to adhesions
Clinical improvement with minimal, gastric outputs and passage of flatus and stool. Plan for NGT removal and trial of clears.
-- LRD, DC home when tolerates
-- Dietary education provided
Subjective Data
-
Date of Service: January 29, 2024
AFVSS, [place] clears, denies n/v, passing flatus and stool, feeling much better
Objective Data
-
Intake and Output
01/28/24 01/29/24 01/30/24
06:59 06:59 06:59
Intake Total 1200 / 1200 910 / 910
Output Total 250 / 250
Balance 950 / 950 910 / 910
Intake:
Oral fluids 240 / 240
IV fluids (Total) 1200 / 1200 400 / 400
IV piggybacks 270 / 270
Output:
Gastrointestinal tube output ( 250 / 250
Total)
[place] Sump 250 / 250
Other:
Number of approximated SMALL 2
amounts of urine
Number of approximated MODERATE 1
amounts of urine
Number of approximated LARGE 1
amounts of urine
How many times incontinent 1
SMALL amount urine
Number of unmeasured liquid
stools
Rectum 1 1
Vital Signs
Temp Pulse Resp BP Pulse Ox
99.1 F 73 14 157/89 98
01/29/24 07:37 01/29/24 10:28 01/29/24 07:37 01/29/24 10:28 01/29/24 08:00
Lab Results
01/27/24 05:02
01/29/24 07:15
Calcium 10.1 mg/dl (8.4-10.2) 01/29/24 07:15
Magnesium 1.6 mg/dl (1.6-2.3) 01/28/24 09:09
Total Bilirubin 0.6 mg/dl (0.2-1.3) 01/29/24 07:15
AST 34 U/L (14-36) 01/29/24 07:15
ALT 18 U/L (0-35) 01/29/24 07:15
Alkaline Phosphatase 112 U/L (38-126) 01/29/24 07:15
Total Protein 6.2 g/dl (6.3-8.2) L 01/29/24 07:15
Albumin 3.4 g/dl (3.5-5.0) L 01/29/24 07:15
Physical Exam
-
Gen: NAD
Abd: soft, nt, nd
--- NOTE | 2024-01-29 14:05 | CM ---
Chart reviewed, plan for discharge if tolerates diet. Patient seen with family, reports no needs upon discharge. Patient inquiring about follow up appointments she will need to make upon discharge, CM discussed this information will be on patients
discharge paperwork. CM will continue to follow for discharge planning needs.
Plan; home with family, no needs.
[2024-01-29 14:37] VITALS: BP 151/93
[2024-01-29 17:06] LABS: Glucose - Point of Care 151 mg/dl (70-99)
== END 2024-01-29 18:34 | disposition home or self-care (01) | DRG 389 ==
LOC: 2 SOUTH 21:09
PROVIDERS: Physician Assistant; ADMITTING PHYSICIAN Internal Medicine; ATTENDING PHYSICIAN Hospitalist; CONSULT PHYSICIAN Surgery; EMERGENCY PHYSICIAN Emergency Medicine; FAMILY PHYSICIAN Family Medicine
DX: K56.600 Partial intestinal obstruction, unspecified as to cause (principal); E87.1 Hypo-osmolality and hyponatremia; N17.9 Acute kidney failure, unspecified; Z66 Do not resuscitate; E86.1 Hypovolemia; E03.9 Hypothyroidism, unspecified; I10 Essential (primary) hypertension; E11.9 Type 2 diabetes mellitus without complications; E78.5 Hyperlipidemia, unspecified; E87.6 Hypokalemia
CPT/HCPCS: 71045; 74018; 74176; 80048; 80053; 82962; 83605; 83690; 83735; 85025; 85027; 93005; 96365; 96375; 99285